=== PATIENT | male | born 1995 | race African-American/Black ===

== ENCOUNTER 2022-01-04 08:17 | Emergency (ER) | payer OTHER, SELFPAY ==
[2022-01-04] MEDS ORDERED: Ketorolac Tromethamine 30 MG/ML VIAL ONE (09:59)
== END 2022-01-04 10:18 | disposition home or self-care (01) ==
LOC: ERS 08:17
DX: R51.9 Headache, unspecified (principal); R11.0 Nausea; K21.9 Gastro-esophageal reflux disease without esophagitis; V89.2XXA Person injured in unspecified motor-vehicle accident, traffic, initial encounter
CPT/HCPCS: 70450; 71045; 72125; 96372; J1885